=== PATIENT | female | born 1945 | race Caucasian/White ===

== ENCOUNTER 2022-10-06 08:13 | Outpatient (CLI) | payer MEDICARE, BC | END 2022-10-06 08:14 | disposition home or self-care (01) | LOC: CSHWCC 08:13 | PROVIDERS: ATTEND Nurse Practitioner Family | DX: S91.101D Unspecified open wound of right great toe without damage to nail, subsequent encounter (principal) | CPT/HCPCS: 97139; G0463; 99203 ==

== ENCOUNTER 2022-10-20 12:45 | Outpatient (CLI) | payer MEDICARE, BC | END 2022-10-20 12:46 | disposition home or self-care (01) | LOC: CSHMRI 12:45 | PROVIDERS: ATTEND Nurse Practitioner Family | DX: S91.101A Unspecified open wound of right great toe without damage to nail, initial encounter (principal) | CPT/HCPCS: 82565 ==

== ENCOUNTER 2022-10-28 10:46 | Outpatient (CLI) | payer MEDICARE, BC | END 2022-10-28 10:47 | disposition home or self-care (01) | LOC: CSHRAD 10:46 | PROVIDERS: ATTEND Nurse Practitioner Family | DX: I10 Essential (primary) hypertension (principal); I27.20 Pulmonary hypertension, unspecified | CPT/HCPCS: 71046 ==

== ENCOUNTER 2022-12-02 10:41 | Outpatient (CLI) | payer MEDICARE, BC | END 2022-12-02 10:42 | disposition home or self-care (01) | LOC: CSHWCC 10:41 | PROVIDERS: ATTEND Nurse Practitioner Family | DX: S91.101D Unspecified open wound of right great toe without damage to nail, subsequent encounter (principal) ==

== ENCOUNTER 2023-01-20 08:18 | Outpatient (CLI) | payer MEDICARE, BC | END 2023-01-20 08:19 | disposition home or self-care (01) | LOC: CSHWCC 08:18 | PROVIDERS: ATTEND Nurse Practitioner Family | DX: S91.101D Unspecified open wound of right great toe without damage to nail, subsequent encounter (principal) ==

== ENCOUNTER 2023-01-24 11:33 | Outpatient (CLI) | payer MEDICARE, BC | END 2023-01-24 11:34 | disposition home or self-care (01) | LOC: CSHWCC 11:33 | PROVIDERS: ATTEND Nurse Practitioner Family | DX: S91.101D Unspecified open wound of right great toe without damage to nail, subsequent encounter (principal); L89.890 Pressure ulcer of other site, unstageable; T86.821 Skin graft (allograft) (autograft) failure | CPT/HCPCS: 93923; 97607 ==

== ENCOUNTER 2023-01-27 13:10 | Outpatient (CLI) | payer MEDICARE, BC | END 2023-01-27 13:11 | disposition home or self-care (01) | LOC: CSHWCC 13:10 | PROVIDERS: ATTEND Nurse Practitioner Family | DX: L89.890 Pressure ulcer of other site, unstageable (principal); S91.101D Unspecified open wound of right great toe without damage to nail, subsequent encounter; T86.821 Skin graft (allograft) (autograft) failure | CPT/HCPCS: 97607 ==

== ENCOUNTER 2023-01-28 12:29 | Outpatient (CLI) | payer MEDICARE, BC | END 2023-01-28 12:30 | disposition home or self-care (01) | LOC: CSHULT 12:29 | PROVIDERS: ATTEND Nurse Practitioner Family | DX: Z01.818 Encounter for other preprocedural examination (principal); I10 Essential (primary) hypertension; R91.1 Solitary pulmonary nodule; I38 Endocarditis, valve unspecified | CPT/HCPCS: 71046; 93306 ==

== ENCOUNTER 2023-01-31 13:24 | Outpatient (CLI) | payer MEDICARE, BC | END 2023-01-31 13:25 | disposition home or self-care (01) | LOC: CSHWCC 13:24 | PROVIDERS: ATTEND Nurse Practitioner Family | DX: L89.890 Pressure ulcer of other site, unstageable (principal); T86.821 Skin graft (allograft) (autograft) failure; S91.101D Unspecified open wound of right great toe without damage to nail, subsequent encounter; S81.801D Unspecified open wound, right lower leg, subsequent encounter | CPT/HCPCS: 97607 ==

== ENCOUNTER 2023-02-07 12:55 | Outpatient (CLI) | payer MEDICARE, BC | END 2023-02-07 12:56 | disposition home or self-care (01) | LOC: CSHWCC 12:55 | PROVIDERS: ATTEND Nurse Practitioner Family | DX: L89.890 Pressure ulcer of other site, unstageable (principal); T86.821 Skin graft (allograft) (autograft) failure; S91.101D Unspecified open wound of right great toe without damage to nail, subsequent encounter; S81.801D Unspecified open wound, right lower leg, subsequent encounter | CPT/HCPCS: 11042; 97139; G0463; 99212 ==

== ENCOUNTER 2023-02-21 11:54 | Outpatient (CLI) | payer MEDICARE, BC | END 2023-02-21 11:55 | disposition home or self-care (01) | LOC: CSHWCC 11:54 | PROVIDERS: ATTEND Nurse Practitioner Family | DX: L89.890 Pressure ulcer of other site, unstageable (principal); T86.821 Skin graft (allograft) (autograft) failure; S91.101D Unspecified open wound of right great toe without damage to nail, subsequent encounter; S81.801D Unspecified open wound, right lower leg, subsequent encounter | CPT/HCPCS: 97139; G0463; 99213 ==

== ENCOUNTER 2023-03-09 13:01 | Outpatient (CLI) | payer MEDICARE, BC | END 2023-03-09 13:02 | disposition home or self-care (01) | LOC: CSHWCC 13:01 | PROVIDERS: ATTEND Nurse Practitioner Family | DX: L89.890 Pressure ulcer of other site, unstageable (principal) ==

== ENCOUNTER 2023-03-24 12:52 | Outpatient (CLI) | payer MEDICARE, BC | END 2023-03-24 12:53 | disposition home or self-care (01) | LOC: CSHWCC 12:52 | PROVIDERS: ATTEND Nurse Practitioner Family | DX: L89.890 Pressure ulcer of other site, unstageable (principal) | CPT/HCPCS: 11042 ==

== ENCOUNTER 2023-05-12 12:59 | Outpatient (CLI) | payer MEDICARE, BC | END 2023-05-12 13:00 | disposition home or self-care (01) | LOC: CSHWCC 12:59 | PROVIDERS: ATTEND Nurse Practitioner Family | DX: L89.890 Pressure ulcer of other site, unstageable (principal) | CPT/HCPCS: 11042 ==

== ENCOUNTER 2023-06-02 13:00 | Outpatient (CLI) | payer MEDICARE, BC | END 2023-06-02 13:01 | disposition home or self-care (01) | LOC: CSHWCC 13:00 | PROVIDERS: ATTEND Nurse Practitioner Family | DX: L89.890 Pressure ulcer of other site, unstageable (principal) | CPT/HCPCS: 97597 ==

== ENCOUNTER 2023-06-30 10:23 | Outpatient (CLI) | payer MEDICARE, BC | END 2023-06-30 10:24 | disposition home or self-care (01) | LOC: CSHWCC 10:23 | PROVIDERS: ATTEND Nurse Practitioner Family | DX: I10 Essential (primary) hypertension (principal) | CPT/HCPCS: 97139; G0463; 99212 ==

== ENCOUNTER 2024-11-08 13:23 | Outpatient (CLI) | payer MEDICARE | END 2024-11-08 13:24 | disposition home or self-care (01) | LOC: CSHCT 13:23 | PROVIDERS: ATTEND Internal Medicine | DX: R91.1 Solitary pulmonary nodule (principal); J44.9 Chronic obstructive pulmonary disease, unspecified; R91.8 Other nonspecific abnormal finding of lung field; Z98.890 Other specified postprocedural states; I25.10 Atherosclerotic heart disease of native coronary artery without angina pectoris; I25.84 Coronary atherosclerosis due to calcified coronary lesion | CPT/HCPCS: 71250; 94060; 94664; 94726; 94729; 94760 ==